=== PATIENT | female | born 1950 ===

== ENCOUNTER → 2017-12-19 | Outpatient (CLI) | payer MEDICARE ==
[2017-12-19 14:36] LABS: INR 2.4 (0.8-1.4); PROTHROMBIN TIME PATIENT 25.8 SEC (12.2-14.7)
== END ==
LOC: HH 07:00
PROVIDERS: ATTEND Internal Medicine Cardiovascular Disease
DX: Z51.81 Encounter for therapeutic drug level monitoring (principal); Z79.01 Long term (current) use of anticoagulants
CPT/HCPCS: 85610

== ENCOUNTER → 2018-01-02 | Outpatient (CLI) | payer MEDICARE ==
[2018-01-02 15:06] LABS: INR 4.7 (0.8-1.4); PROTHROMBIN TIME PATIENT 43.5 SEC (12.2-14.7)
== END ==
LOC: HH 07:00
PROVIDERS: ATTEND Internal Medicine Cardiovascular Disease
DX: Z51.81 Encounter for therapeutic drug level monitoring (principal); Z79.01 Long term (current) use of anticoagulants
CPT/HCPCS: 85610

== ENCOUNTER → 2018-01-09 | Outpatient (CLI) | payer MEDICARE ==
[2018-01-09 18:51] LABS: PROTHROMBIN TIME PATIENT 51.2 SEC (12.2-14.7)
[2018-01-09 18:52] LABS: INR 5.8 (0.8-1.4)
== END ==
LOC: HH 08:00
PROVIDERS: ATTEND Internal Medicine Cardiovascular Disease
DX: Z51.81 Encounter for therapeutic drug level monitoring (principal); Z79.01 Long term (current) use of anticoagulants
CPT/HCPCS: 85610

== ENCOUNTER → 2018-01-13 | Outpatient (CLI) | payer MEDICARE ==
[2018-01-13 09:39] LABS: INR 1.5 (0.8-1.4); PROTHROMBIN TIME PATIENT 18.5 SEC (12.2-14.7)
== END ==
LOC: HH 08:00
PROVIDERS: ATTEND Internal Medicine Cardiovascular Disease
DX: Z51.81 Encounter for therapeutic drug level monitoring (principal); Z79.01 Long term (current) use of anticoagulants
CPT/HCPCS: 85610

== ENCOUNTER → 2018-01-18 | Outpatient (CLI) | payer MEDICARE | LOC: HH 08:15 | PROVIDERS: ATTEND Internal Medicine Cardiovascular Disease | DX: Z51.81 Encounter for therapeutic drug level monitoring (principal); Z79.01 Long term (current) use of anticoagulants ==

== ENCOUNTER → 2018-01-19 | Outpatient (CLI) | payer MEDICARE ==
[2018-01-19 14:49] LABS: INR 4.6 (0.8-1.4); PROTHROMBIN TIME PATIENT 42.7 SEC (12.2-14.7)
== END ==
LOC: HH 09:14
PROVIDERS: ATTEND Internal Medicine Cardiovascular Disease
DX: Z51.81 Encounter for therapeutic drug level monitoring (principal); Z79.01 Long term (current) use of anticoagulants
CPT/HCPCS: 85610

== ENCOUNTER → 2018-01-23 | Outpatient (CLI) | payer MEDICARE ==
[2018-01-23 13:24] LABS: INR 4.1 (0.8-1.4)
== END ==
LOC: HH 08:00
PROVIDERS: ATTEND Internal Medicine Cardiovascular Disease
DX: Z51.81 Encounter for therapeutic drug level monitoring (principal); Z79.01 Long term (current) use of anticoagulants
CPT/HCPCS: 85610

== ENCOUNTER → 2018-01-30 | Outpatient (CLI) | payer MEDICARE | LOC: HH 08:00 | PROVIDERS: ATTEND Internal Medicine Cardiovascular Disease | DX: Z51.81 Encounter for therapeutic drug level monitoring (principal); Z79.01 Long term (current) use of anticoagulants ==

== ENCOUNTER → 2018-09-13 | Outpatient (CLI) | payer MEDICARE ==
[2018-09-13 18:20] LABS: INR 2.6 (0.8-1.4); PROTHROMBIN TIME PATIENT 28.4 SEC (12.2-14.7)
== END ==
LOC: HH 17:58
DX: Z51.81 Encounter for therapeutic drug level monitoring (principal); Z79.01 Long term (current) use of anticoagulants
CPT/HCPCS: 85610

== ENCOUNTER → 2018-12-29 | Outpatient (CLI) | payer MEDICARE ==
[2018-12-29 17:44] LABS: INR 3.6 (0.8-1.4); PROTHROMBIN TIME PATIENT 36.1 SEC (12.2-14.7)
== END ==
LOC: LABNPT 16:47
PROVIDERS: ATTEND Internal Medicine Cardiovascular Disease
DX: Z51.81 Encounter for therapeutic drug level monitoring (principal); Z79.01 Long term (current) use of anticoagulants
CPT/HCPCS: 85610